=== PATIENT | male | born 1935 | race Caucasian/White ===

== ENCOUNTER 2017-01-04 11:56 | Emergency (ER) | payer OTHER, MEDICARE ==
--- NOTE | 2017-01-04 12:16 | CPEKG ---
Heart Rate: 96 RR Interval: 625 P-R Interval: 268 QRSD Interval: 92 QT Interval: 328 QTC Interval: 415 P [place]: 18 QRS [place]: -59 T Wave [place]: 25 EKG Severity - ABNORMAL ECG - EKG Impression: SINUS RHYTHM EKG Impression: FIRST DEGREE AV BLOCK EKG Impression: LEFT ANTERIOR FASCICULAR BLOCK Electronically Signed By: Kyler Lopez 04-Jan-2017 14:40:49
--- NOTE | 2017-01-04 12:41 | EDPHY ---
H & P Stated Complaint: tachycardia/palpitations/exposure to dcon mice killer Time Seen by Provider: 01/04/17 12:25 HPI/ROS: CHIEF COMPLAINT: Tachycardia. HPI: The patient is an 81 year old male who complains of tachycardia that started last night. The patient states his heart rate remained around 100bpm throughout the night. He had 1 episode of diarrhea around 12am. This morning his heart rate remained elevated in the 100s. His BGL this morning was 165. The patient has no history of blood clots. He denies lower extremity pain or swelling. Patient mentioned that he touched rat poisoning on accident yesterday. He denies dark or bloody stool. REVIEW OF SYSTEMS: Aside from elements discussed in the HPI, a comprehensive 10-point review of systems was reviewed and is negative. PMH: Diabetes, Thoracic aortic aneurism (last checked 2 years ago). 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 PHYSICAL EXAM: General: Patient is alert, in no acute distress. ENT: Eyes are normal to inspection. ENT inspection normal. Neck: Normal inspection. Full range of motion. Respiratory: No respiratory distress. Breath sounds normal bilaterally. Cardiovascular: Regular rate and rhythm. Strong peripheral pulses. Abdomen: The abdomen is nontender to palpation. There are no peritoneal signs. There are normal bowel sounds. Back: Normal to inspection. No tenderness to palpation. Skin: Normal color. No rash. Warm and dry. Extremities: Normal appearance. Full range of motion. Neuro: Oriented x3. Normal motor function. Normal sensory function. Source: Patient - Personal History Current Tetanus/Diphtheria Vaccine: Unsure - Medical/Surgical History Hx Asthma: No Hx Chronic Respiratory Disease: No Hx Diabetes: No Hx Cardiac Disease: Yes Hx Renal Disease: No Hx Cirrhosis: No Hx Alcoholism: No Hx HIV/AIDS: No Hx Splenectomy or Spleen Trauma: No Other PMH: aortic aneurys/diab/ - Social History Smoking Status: Never smoked Constitutional: Initial Vital Signs Temperature (C) 36.6 C 01/04/17 12:05 Heart Rate 102 H 01/04/17 12:05 Respiratory Rate 22 H 01/04/17 12:05 Blood Pressure 183/95 H 01/04/17 12:05 O2 Sat (%) 94 01/04/17 12:05 O2 Delivery Mode Room Air Allergies/Adverse Reactions: Penicillins Allergy (Verified 01/04/17 12:03) Home Medications: Medication Instructions Recorded Actos 01/04/17 Aspirin 81mg (*) 01/04/17 Cialis 01/04/17 GLIPIZIDE 01/04/17 Lisinopril 01/04/17 Lovastatin 01/04/17 Metformin HCl 01/04/17 Protonix 01/04/17 Departure - Departure Referrals: Roxanna Johnson MD [Primary Care Provider] - As per Instructions Report Scribed for: yKler Lopez Report Scribed by: Kerry Sinclair Date of Report: 01/04/17 Time of Report: 12:44
[2017-01-04] MEDS ORDERED: NS 1,000 ML IV ONE (12:42)
[2017-01-04 12:48] LABS: % IMMATURE GRANULYOCYTES 0.4 % (0.0-1.1); ABSOLUTE IMMATURE GRANULOCYTES 0.02 10^3/uL (0.00-0.10); ADD DIFF? NO; ADD MORPH? NO; ADD SCAN? NO; ATYPICAL LYMPHOCYTE FLAG 0 (0-99); FRAGMENT RBC FLAG 0 (0-99); HEMATOCRIT 47.9 % (40.0-51.0); HEMOGLOBIN 16.2 g/dL (13.7-17.5); LEFT SHIFT FLG 0 (0-99); LIPEMIA HEMOLYSIS FLAG 90 (0-99); MEAN CELL HEMOGLOBIN 30.8 pg (27.9-34.1); MEAN CELL HEMOGLOBIN CONCENTR. 33.8 g/dL (32.4-36.7); MEAN CELL VOLUME 91.1 fL (81.5-99.8); MEAN PLATELET VOLUME 10.9 fL (8.7-11.7); PLATELET CLUMPS FLAG 0 (0-99); PLATELET COUNT 225 10^3/uL (150-400); RED BLOOD CELL COUNT 5.26 10^6/uL (4.40-6.38); RED CELL DISTRIBUTION WIDTH 14.6 % (11.5-15.2)
[2017-01-04 13:00] LABS: ANION GAP 14 mEq/L (8-16); CARBON DIOXIDE 18 mEq/l (22-31); CHLORIDE 109 mEq/L (97-110); CREATININE 1.1 mg/dL (0.7-1.3); GLOMERULAR FILTRATION RATE > 60; GLUCOSE 176 mg/dL (70-100); POTASSIUM 4.5 mEq/L (3.5-5.2); SODIUM 141 mEq/L (134-144)
--- NOTE | 2017-01-04 13:00 | EDPHY ---
HPI/HX/ROS/PE/MDM Narrative: CHIEF COMPLAINT: Tachycardia. HPI: The patient is an 81 year old male with known thoracic aortic aneurism, who complains of tachycardia that has been ongoing since last night. The patient states his heart rate remained around 100bpm throughout the night. He had 1 episode of diarrhea around 12am. This morning his heart rate remained elevated in the 100s. His BGL this morning was 165. The patient has no history of blood clots. He denies lower extremity pain or swelling. Patient mentioned that he touched rat poisoning on accident yesterday. He denies dark or bloody stool. REVIEW OF SYSTEMS: Aside from elements discussed in the HPI, a comprehensive 10-point review of systems was reviewed and is negative. PMH: Diabetes, Thoracic aortic aneurism (last checked 2 years ago), Berylliosis. 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 PHYSICAL EXAM: General: Patient is alert, in no acute distress. ENT: Eyes are normal to inspection. ENT inspection normal. Neck: Normal inspection. Full range of motion. Respiratory: No respiratory distress. Breath sounds normal bilaterally. Cardiovascular: Tachycardic, regular rhythm. Strong peripheral pulses. Abdomen: The abdomen is nontender to palpation. There are no peritoneal signs. There are normal bowel sounds. Back: Normal to inspection. No tenderness to palpation. Skin: Normal color. No rash. Warm and dry. Extremities: Normal appearance. Full range of motion. Neuro: Oriented x3. Normal motor function. Normal sensory function. (Kyler Lopez) ED Course: The 12 lead EKG was interpreted by myself. See hard copy and/or "tracemaster" electronic copy for interpretation. D-dimer and chest x-ray pending. Study: X-ray of the chest was obtained. Results: Mildly prominent aortic arch with curvilinear atherosclerotic calcification that is removed from the lateral wall.. Images were interpreted by the radiologist, Dr. Glasgow. I viewed the images myself on the PACS system. The radiologist suggests CT Angio chest due to concern for aortic dissection. I discussed this with the patient. Patient agrees to CT chest. I have signed patient out to Dr. Reveles at 3pm pending CT-chest results. I anticipate likely discharge home if negative and if vitals remain normal. (Kyler Lopez) MDM: Patient was seen by me at 3:05 p.m.. He stable. He has no complaints. Current heart rate is 75 CT patient's chest is reviewed by me and discussed with Dr. Barbosa. The results are no pulmonary embolus. There is mild dilation of the ascending aorta which is been present before. No change from previous CT. This appears to be a stable chest I re-evaluated the patient at 3:15 p.m.. The patient, his , and I discussed imaging and lab results. We discussed treatment plan including criteria for return and importance of follow-up and further evaluation. They expressed understanding and agreement (Bhaskar Reveles) - Data Points Laboratory Results: Laboratory Results 01/04/17 12:20 01/04/17 12:20 01/04/17 01/04/17 01/04/17 12:20 12:20 12:20 WBC RBC Hgb Hct MCV MCH MCHC RDW Plt Count MPV Neut % (Auto) Lymph % (Auto) Elbert % (Auto) Eos % (Auto) Baso % (Auto) Nucleat RBC Rel Count Absolute Neuts (auto) Absolute Lymphs (auto) Absolute Monos (auto) Absolute Eos (auto) Absolute Basos (auto) Absolute Nucleated RBC Immature Gran % Immature Gran # D-Dimer < 0.27 ug/mLFEU ug/mLFEU (0.00-0.50) Sodium 141 mEq/L mEq/L (134-144) Potassium 4.5 mEq/L mEq/L (3.5-5.2) Chloride 109 mEq/L mEq/L (97-110) Carbon Dioxide 18 mEq/l L mEq/l (22-31) Anion Gap 14 mEq/L mEq/L (8-16) BUN 17 mg/dL mg/dL (7-23) Creatinine 1.1 mg/dL mg/dL (0.7-1.3) Estimated GFR > 60 Glucose 176 mg/dL H mg/dL (70-100) Calcium 10.0 mg/dL mg/dL (8.5-10.4) Troponin I < 0.012 ng/mL ng/mL (0-0.034) TSH 2.270 uIU/mL uIU/mL (0.465-4.680) 01/04/17 12:20 WBC 5.52 10^3/uL 10^3/uL (3.80-9.50) RBC 5.26 10^6/uL 10^6/uL (4.40-6.38) Hgb 16.2 g/dL g/dL (13.7-17.5) Hct 47.9 % % (40.0-51.0) MCV 91.1 fL fL (81.5-99.8) MCH 30.8 pg pg (27.9-34.1) MCHC 33.8 g/dL g/dL (32.4-36.7) RDW 14.6 % % (11.5-15.2) Plt Count 225 10^3/uL 10^3/uL (150-400) MPV 10.9 fL fL (8.7-11.7) Neut % (Auto) 69.9 % % (39.3-74.2) Lymph % (Auto) 20.8 % % (15.0-45.0) Elbert % (Auto) 8.2 % % (4.5-13.0) Eos % (Auto) 0.2 % L % (0.6-7.6) Baso % (Auto) 0.5 % % (0.3-1.7) Nucleat RBC Rel Count 0.0 % % (0.0-0.2) Absolute Neuts (auto) 3.86 10^3/uL 10^3/uL (1.70-6.50) Absolute Lymphs (auto) 1.15 10^3/uL 10^3/uL (1.00-3.00) Absolute Monos (auto) 0.45 10^3/uL 10^3/uL (0.30-0.80) Absolute Eos (auto) 0.01 10^3/uL L 10^3/uL (0.03-0.40) Absolute Basos (auto) 0.03 10^3/uL 10^3/uL (0.02-0.10) Absolute Nucleated RBC 0.00 10^3/uL 10^3/uL (0-0.01) Immature Gran % 0.4 % % (0.0-1.1) Immature Gran # 0.02 10^3/uL 10^3/uL (0.00-0.10) D-Dimer Sodium Potassium Chloride Carbon Dioxide Anion Gap BUN Creatinine Estimated GFR Glucose Calcium Troponin I TSH Medications Given: Discontinued Medications Sodium Chloride (Ns) 1,000 mls @ 0 mls/hr IV ONCE ONE PRN Reason: Wide Open Stop: 01/04/17 12:43 Last Admin: 01/04/17 12:49 Dose: 1,000 mls General Time Seen by Provider: 01/04/17 12:25 Initial Vital Signs: Initial Vital Signs Temperature (C) 36.6 C 01/04/17 12:05 Heart Rate 102 H 01/04/17 12:05 Respiratory Rate 22 H 01/04/17 12:05 Blood Pressure 183/95 H 01/04/17 12:05 O2 Sat (%) 94 01/04/17 12:05 O2 Delivery Mode Room Air Allergies/Adverse Reactions: Penicillins Allergy (Verified 01/04/17 12:03) Home Medications: Medication Instructions Recorded Actos 01/04/17 Aspirin 81mg (*) 01/04/17 Cialis 01/04/17 GLIPIZIDE 01/04/17 Lisinopril 01/04/17 Lovastatin 01/04/17 Metformin HCl 01/04/17 Protonix 01/04/17 Departure - Departure Disposition: Home, Routine, Self-Care Clinical Impression: Tachycardia Condition: Good Instructions: Tachycardia (ED) Additional Instructions: Follow-up with your primary doctor within 72 hours. Return to the Emergency Department for fever, chest pain, shortness of breath, increasing pain or other worsening of condition. Follow up with a ruching machine operator for further testing, as soon as possible, within one week. As we discussed, it is impossible to fully rule out heart disease as the cause of your chest pain in the emergency department. We would be happy to reevaluate you and observe you in the hospital at any time. Referrals: Roxanna Johnson MD [Primary Care Provider] - As per Instructions [facility] [Provider Group] - As per Instructions Report Scribed for: Kyler Lopez Report Scribed by: Kerry Sinclair Date of Report: 01/04/17 Time of Report: 13:00
[2017-01-04 13:12] LABS: TROPONIN I < 0.012 ng/mL (0-0.034)
[2017-01-04 13:49] VITALS: RESP 14; TEMP 98.4; O2SAT 96
[2017-01-04] MEDS ORDERED: IOPAMIDOL (ISOVUE-300) 100 ML BTL IV ONE (14:33)
[2017-01-04 15:25] VITALS: BP 138/78; PULSE 70
== END 2017-01-04 15:24 | disposition home or self-care (01) ==
DX: R00.0 Tachycardia, unspecified (principal); R19.7 Diarrhea, unspecified; E11.9 Type 2 diabetes mellitus without complications; Z79.82 Long term (current) use of aspirin; I71.4 Abdominal aortic aneurysm, without rupture
CPT/HCPCS: 71020; 71275; 93005; 96360; 99285; Q9967